=== PATIENT | male | born 1990 | race African-American/Black ===

== ENCOUNTER 2020-03-27 17:25 | Emergency (ER) | payer OTHER ==
[~2020-03-27] VITALS: Ht 182.9 cm; Wt 108.9 kg
[2020-03-27 18:13] LABS: HEMATOCRIT 42.9 % (42.0-52.0); HEMOGLOBIN 14.5 gm/dL (14.0-18.0); MCH 28.6 pg (26.0-34.0); MCHC 33.8 g/dL (28.0-37.0); MCV 84.6 fL (80.0-100.0); PLATELET COUNT 237 thou/uL (150-400); RBC 5.07 mil/uL (4.50-6.00); RDW 14.2 % (10.5-14.5); WBC 7.1 thou/uL (4.0-11.0)
[2020-03-27 18:20] LABS: CREATININE 1.1 mg/dL (0.7-1.3); POTASSIUM 3.6 mmol/L (3.5-5.1)
[2020-03-27 18:22] LABS: APTT 29.6 Seconds (24.5-32.8); PROTIME 9.5 Seconds (9.3-11.4)
[2020-03-27 18:28] LABS: ALBUMIN 3.7 g/dL (3.4-5.0); MAGNESIUM 1.8 mg/dL (1.8-2.4); TOTAL BILIRUBIN 0.7 mg/dL (<0.1-1.0); TOTAL PROTEIN 7.5 g/dL (6.4-8.2)
[2020-03-27 19:04] LABS: ABSOLUTE NEUTROPHILS 4.8 thou/uL (1.4-8.2)
[2020-03-27 19:05] LABS: ANISOCYTOSIS 1+
[2020-03-27] MEDS ORDERED: LASIX 20 MG TAB20 MG PO (19:58)
[2020-03-27] MEDS ORDERED: KLOR-CON 1010 MEQ PO (19:58)
[2020-03-27 20:04] VITALS: BP 144/93
== END 2020-03-27 20:14 | disposition home or self-care (01) ==
LOC: ER 17:25
PROVIDERS: Physician Assistant
DX: R60.0 Localized edema (principal); F17.210 Nicotine dependence, cigarettes, uncomplicated; X50.0XXA Overexertion from strenuous movement or load, initial encounter; Y93.89 Activity, other specified; Y92.89 Other specified places as the place of occurrence of the external cause; Y99.8 Other external cause status